=== PATIENT | male | born 1935 | race Two or more races ===

== ENCOUNTER 2018-05-02 02:02 | Emergency (ER) | payer OTHER ==
[~2018-05-02] VITALS: Ht 177.8 cm; Wt 81.6 kg
== END 2018-05-02 07:46 | disposition expired ==
LOC: ER 02:02
DX: I46.9 Cardiac arrest, cause unspecified (principal); I10 Essential (primary) hypertension; Z86.73 Personal history of transient ischemic attack (TIA), and cerebral infarction without residual deficits
CPT/HCPCS: 92950